=== PATIENT | male | born 1950 | race Caucasian/White ===

== ENCOUNTER → 2018-06-26 | Outpatient (CLI) | payer BC, OTHER ==
[~2018-06-26] MED LIST: ASPIRIN81 MG PO; COUMADIN 5 MG TA5 M1 PO; CRESTOR; ENALAPRIL MALEA10 M1 PO; NEXIUM; NORVASC 5 MG TAB5 MG PO
== END ==
LOC: RAD 08:46
DX: R05 Cough (principal); I11.9 Hypertensive heart disease without heart failure

== ENCOUNTER → 2019-05-08 | Outpatient (CLI) | payer OTHER | LOC: SJCVCIMAG 13:55 | DX: Z51.81 Encounter for therapeutic drug level monitoring (principal); I44.7 Left bundle-branch block, unspecified; I48.21 Permanent atrial fibrillation; R94.31 Abnormal electrocardiogram [ECG] [EKG]; I65.23 Occlusion and stenosis of bilateral carotid arteries; I25.10 Atherosclerotic heart disease of native coronary artery without angina pectoris; I71.4 Abdominal aortic aneurysm, without rupture; I10 Essential (primary) hypertension; E78.00 Pure hypercholesterolemia, unspecified; I77.4 Celiac artery compression syndrome; I73.9 Peripheral vascular disease, unspecified; R09.89 Other specified symptoms and signs involving the circulatory and respiratory systems; R06.02 Shortness of breath; Z95.2 Presence of prosthetic heart valve; Z79.01 Long term (current) use of anticoagulants ==

== ENCOUNTER → 2019-05-16 | Outpatient (CLI) | payer OTHER | LOC: SJCVCIMAG 08:08 | PROVIDERS: ATTEND Internal Medicine Cardiovascular Disease | DX: I71.4 Abdominal aortic aneurysm, without rupture (principal); I77.4 Celiac artery compression syndrome ==

== ENCOUNTER → 2020-01-11 | Outpatient (CLI) | payer OTHER | LOC: SJCVCIMAG 09:58 | PROVIDERS: ATTEND Internal Medicine Cardiovascular Disease | DX: I08.8 Other rheumatic multiple valve diseases (principal); R94.31 Abnormal electrocardiogram [ECG] [EKG]; I11.9 Hypertensive heart disease without heart failure; I49.3 Ventricular premature depolarization; I48.21 Permanent atrial fibrillation; E78.00 Pure hypercholesterolemia, unspecified; I73.9 Peripheral vascular disease, unspecified; I77.4 Celiac artery compression syndrome; I42.8 Other cardiomyopathies; Z95.2 Presence of prosthetic heart valve; Z79.01 Long term (current) use of anticoagulants; Z79.899 Other long term (current) drug therapy; Z86.73 Personal history of transient ischemic attack (TIA), and cerebral infarction without residual deficits ==

== ENCOUNTER 2020-08-04 13:37 | Inpatient (IN) | payer OTHER ==
[~2020-08-04] VITALS: Ht 190.5 cm; Wt 91.2 kg
[2020-08-04 13:40] VITALS: BP 150/87
[2020-08-04 15:13] LABS: ABSOLUTE NEUTROPHILS 8.1 thou/uL (1.4-8.2); BASOPHILS 0.3 % (0.0-2.0); EOSINOPHILS 0.2 % (0.0-3.0); HEMATOCRIT 43.1 % (42.0-52.0); HEMOGLOBIN 14.6 gm/dL (14.0-18.0); LYMPHOCYTES 12.1 % (24.0-44.0); MCH 31.3 pg (26.0-34.0); MCHC 33.9 g/dL (28.0-37.0); MCV 92.3 fL (80.0-100.0); MONOCYTES 4.6 % (1.0-8.0); PLATELET COUNT 224 thou/uL (150-400); POLYS 82.8 % (36.0-66.0); RBC 4.67 mil/uL (4.50-6.00); RDW 15.7 % (10.5-14.5); WBC 9.7 thou/uL (4.0-11.0)
[2020-08-04 15:22] LABS: CALCIUM 8.8 mg/dL (8.5-10.1); POTASSIUM 4.1 mmol/L (3.5-5.1)
[2020-08-04 15:28] LABS: ALBUMIN 3.7 g/dL (3.4-5.0); TOTAL BILIRUBIN 0.7 mg/dL (0.2-1.0); TOTAL PROTEIN 7.1 g/dL (6.4-8.2)
[2020-08-04] MEDS ORDERED: NEXIUM 40 MG CA40 M1 PO (17:07)
[2020-08-04] MEDS ORDERED: ROSUVASTATIN CA10 MG PO (17:07)
[2020-08-04] MEDS ORDERED: SERTRALINE HCL100 MG PO (17:08)
[2020-08-04] MEDS ORDERED: BYSTOLIC10 MG PO (17:08)
[2020-08-04] MEDS ORDERED: LORAZEPAM 1 MG T1 MG PO (17:08)
[2020-08-04] MEDS ORDERED: ALLOPURINOL 10100 M1 PO (17:08)
[2020-08-04] MEDS ORDERED: JANTOVEN2 MG PO (19:04)
[2020-08-04] MEDS ORDERED: METOPROLOL SUCC25 M1 PO (19:04)
[2020-08-04] MEDS ORDERED: COZAAR 25 MG TA25 M1 PO (19:04)
[2020-08-04 19:07] VITALS: BP 131/97
[2020-08-04 19:24] VITALS: BP 153/82
[2020-08-04 21:56] VITALS: BP 160/81
[2020-08-05 05:14] LABS: HEMATOCRIT 43.4 % (42.0-52.0); HEMOGLOBIN 14.4 gm/dL (14.0-18.0); MCH 31.3 pg (26.0-34.0); MCHC 33.2 g/dL (28.0-37.0); MCV 94.1 fL (80.0-100.0); RBC 4.61 mil/uL (4.50-6.00); RDW 15.4 % (10.5-14.5); WBC 11.9 thou/uL (4.0-11.0)
[2020-08-05 05:43] LABS: ALBUMIN 3.4 g/dL (3.4-5.0); CALCIUM 8.3 mg/dL (8.5-10.1); POTASSIUM 4.3 mmol/L (3.5-5.1); TOTAL BILIRUBIN 0.9 mg/dL (0.2-1.0); TOTAL PROTEIN 6.7 g/dL (6.4-8.2)
[2020-08-05 07:20] VITALS: BP 126/78
[2020-08-05 08:48] LABS: INR 2.76; PROTIME 28.7 Seconds (10.5-12.1)
--- NOTE | 2020-08-05 10:43 | 2DMMODE ---
[facility] [place] [address] 2 D/M-MODE ECHOCARDIOGRAM Name: CRYSTAL JOE Room #: 438-P ADM IN M.R.#: [id number] Admission: 08/04/20 Attend Phys: Curt Conway MD Discharge: Date of : 50 Report #: [id number] THIS REPORT FOR: cc: Curt Conway MD, Neal A. MD Lammoglia, Francisco J. MD ~ APPROVED REPORT Study performed: 08/05/2020 09:40:13 EXAM: Comprehensive 2D, Doppler, and color-flow Echocardiogram Patient Location: Bedside Room #: 438 Status: routine BSA: 2.33 HR: 85 bpm BP: 126/78 mmHg Rhythm: Atrial Fibrillation/PVCs Indications Aortic valve replacement. Hx: Afib, PVD, TIA. 2D Dimensions IVSd: 16.78 (7-11mm) LVDd: 56.74 mm PWd: 9.29 (7-11mm) Ascending Ao: 34.09 (22-36mm) LVDs: 48.54 (25-40mm) Left Atrium: 51.35 (27-40mm) Aortic Root: 34.97 mm Volumes Left Atrial Volume (Systole) Single Plane 4CH: 144.76 mL Single Plane 2CH: 114.75 mL LA ESV Index: 61.00 mL/m2 Aortic Valve AoV Peak Alex.: 1.99 m/s AO Peak Gr.: 16.10 mmHg LVOT Max P.78 mmHg AO Mean Gr.: 8.79 mmHg AO V2 Mean: 1.38 m/s LVOT Max V: 0.66 m/s AO V2 VTI: 30.31 cm Mitral Valve [facility] [address] [place] [address] 2 D/M-MODE ECHOCARDIOGRAM Name: CRYSTAL JOE Room #: 438-P [facility].#: [id number] Admission: 08/04/20 Attend Phys: Curt Conway, Discharge: Date of : 50 Report #: [id number] MV Decel. Time: 154.45 ms MV E Max Alex.: 1.35 m/s Pulmonary Valve PV Peak Alex.: 1.03 m/s PV Peak Gr.: 4.27 mmHg Tricuspid Valve TR Peak Alex.: 2.82 m/s TR Peak Gr.: 32.17 mmHg Left Ventricle The left ventricle is normal size. Moderate basal septal hypertrophy is present. Left ventricular systolic function is normal. LVEF is 50-55%. This study is not technically sufficient to allow evaluation of the LV diastolic function due to atrial fibrillation. Right Ventricle The right ventricle is normal size. The right ventricular systolic function is normal. Atria Severe biatrial enlargement. Aortic Valve A 23mm Mechanical aortic valve is present. (Peak gradient through the valve is 16mmHg with a mean of 9mmHg). No aortic regurgitation is present. Mitral Valve The mitral valve is normal in structure. Trace mitral regurgitation. Tricuspid Valve The tricuspid valve is normal in structure. Moderate tricuspid regurgitation. Estimated PAP is 32mmHg plus the right atrial pressure. Pulmonic Valve The pulmonary valve is normal in structure. Trace pulmonic regurgitation. Great Vessels The aortic root is normal in size. The ascending aorta is normal in size. IVC is not well visualized. Pericardium [facility] [address] [place] [address] 2 D/M-MODE ECHOCARDIOGRAM Name: LUCHOALYSSACRYSTAL Room #: 438-P ADM IN M.R.#: [id number] Admission: 08/04/20 Attend Phys: Curt Conway, Discharge: Date of : 50 Report #: [id number] There is no pericardial effusion. <Conclusion> The left ventricle is normal size. Moderate basal septal hypertrophy is present. LVEF is 50-55%. The right ventricle is normal size. Severe biatrial enlargement. A 23mm Mechanical aortic valve is present. (Peak gradient through the valve is 16mmHg with a mean of 9mmHg). No aortic regurgitation is present. The mitral valve is normal in structure. Trace mitral regurgitation. The tricuspid valve is normal in structure. Moderate tricuspid regurgitation. Estimated PAP is 32mmHg plus the right atrial pressure. The pulmonary valve is normal in structure. Trace pulmonic regurgitation. The aortic root is normal in size. There is no pericardial effusion. <ELECTRONICALLY SIGNED> By: Cruz Suresh MD 08/05/20 [id number] Cruz Suresh MD /INF
--- OUTSIDE RECORDS SUMMARY | 2020-08-05 15:05 | XMS REPORT | Summary of Care ---
Demographics + + + | Address | [address] [place] [address] [address] | | | [place] [address] | + + + | Home Phone | | + + + | Preferred Language | Unknown | + + + | Marital Status | Unknown | + + + | Confucianist Affiliation | Unknown | + + + | Race | White | + + + | Ethnic Group | Not or | + + + Author + + + | Author | [facility] | + + + | Organization | [facility] | + + + | Address | Unknown | + + + | Phone | Unavailable | + + + Support + + + + + | Name | Relationship | Address | Phone | + + + + + | Massiel | ECON | [id number] | | | [address] | | [place] | | | | | [facility], | | | | | [place] [address] | | + + + + + Care Team Providers + +------+ + | Care Gold Prospector Name | Role | Phone | + +------+ + | Curt Conway MD | PCP | | + +------+ + Encounter Details +------+---------+ + + + | Date | Type | Department | Care Team | Description | +------+---------+ + + + | 05/2 | Letter | [place] | Man, | | | 07/31 | (Out) | Family Medical | MD [address] | | [address] | [address] | [address], | | | | | [address] | [address] [place] | | | | | [address] | [place] [address] | | | | | [place] [address] | | | | | | | [phone] | | | | | | (Fax) | | +------+---------+ + + + Allergies + + +---------+--------+ + | Active Allergy | Reactions | Severit | Noted | Comments | | | | y | Date | | + + +---------+--------+ + | Amoxicillin-Pot | Diarrhea | Low | 02/05/ | | | Clavulanate | | | 2014 | | + + +---------+--------+ + documented as of this encounter (statuses as of 08/05/2020) Medications + + +---------+--------+-----+-----+------+ | Medication | Sig | Dispens | Refill | Sta | End | Stat | | | | ed | s | rt | | us | | | | | | Juan | Juan | | | | | | | e | e | | + + +---------+--------+-----+-----+------+ | warfarin | Take 1 tablet (2 | 90 | 2 | 10/ | 10/ | Acti | | (Coumadin) 2 MG | mg total) by | tablet | | 12/ | 12/ | ve | | tablet | mouth daily | | | 202 | 202 | | | | | | | 0 | 1 | | + + +---------+--------+-----+-----+------+ | losartan | Take 1 tablet | 90 | 3 | 10/ | 10/ | Acti | | (Cozaar) 25 MG | (25 mg total) by | tablet | | 30/ | 30/ | ve | | tablet | mouth daily | | | 202 | 202 | | | | | | | 0 | 1 | | + + +---------+--------+-----+-----+------+ | warfarin | Take 1 tablet (5 | 90 | 2 | 01/ | | Acti | | (COUMADIN) 5 MG | mg total) by | tablet | | 19/ | | ve | | tablet | mouth daily- | | | 202 | | | | | coumadin- 1700 | | | 1 | | | + + +---------+--------+-----+-----+------+ | LORazepam | TAKE 1 TABLET | 90 | 0 | 03/ | | Acti | | (ATIVAN) 1 MG | NIGHTLY | tablet | | 01/ | | ve | | tablet | NEEDED FOR | | | 202 | | | | | ANXIETY OR SLEEP | | | 1 | | | + + +---------+--------+-----+-----+------+ | allopurinol | TAKE 1 TABLET | 90 | 3 | 03/ | | Acti | | (ZYLOPRIM) 300 | DAILY | tablet | | 01/ | | ve | | MG tablet | | | | 202 | | | | | | | | 1 | | | + + +---------+--------+-----+-----+------+ | sertraline | TAKE 1 TABLET | 90 | 0 | 03/ | | Acti | | (ZOLOFT) 50 MG | DAILY | tablet | | 16/ | | ve | | tablet | | | | 202 | | | | | | | | 1 | | | + + +---------+--------+-----+-----+------+ | atorvastatin | TAKE 1 TABLET | 90 | 1 | 03/ | | Acti | | (LIPITOR) 20 MG | DAILY (THIS IS | tablet | | 16/ | | ve | | tablet | TO REPLACE THE | | | 202 | | | | | | | | 1 | | | | | NOT-COVERED | | | | | | | | ROSUVASTATIN | | | | | | | | PRESCRIPTION | | | | | | | | PLEASE) | | | | | | + + +---------+--------+-----+-----+------+ | pantoprazole | TAKE 1 TABLET | 90 | 3 | 03/ | | Acti | | (PROTONIX) 40 MG | DAILY | tablet | | 16/ | | ve | | tablet | | | | 202 | | | | | | | | 1 | | | + + +---------+--------+-----+-----+------+ | metoprolol | TAKE 1 TABLET | 90 | 1 | 03/ | | Acti | | succinate ER | DAILY | tablet | | 29/ | | ve | | (TOPROL-XL) 25 | | | | 202 | | | | MG 24 hr tablet | | | | 1 | | | + + +---------+--------+-----+-----+------+ documented as of this encounter (statuses as of 08/05/2020) Active Problems + + + | Problem | Noted Date | + + + | BMI 31.0-31.9,adult | 04/21/2018 | + + + | Abdominal pain | 03/02/2018 | + + + | Celiac artery stenosis | 07/15/2017 | + + + | AAA (abdominal aortic aneurysm) without rupture | 12/10/2016 | + + + | PAD (peripheral artery disease) | 12/10/2016 | + + + | Presence of prosthetic heart valve | 07/27/2016 | + + + | History of CVA (cerebrovascular accident) | 07/27/2016 | + + + | Pure hypercholesterolemia | 07/27/2016 | + + + | Essential (primary) hypertension | 07/27/2016 | + + + | senior living current use of anticoagulant | 07/27/2016 | + + + | Rheumatic mitral valve disease | 07/27/2016 | + + + | Syncope and collapse | 07/27/2016 | + + + | Atrial fibrillation [I48.91] | 07/21/2016 | + + + | History of prosthetic aortic valve replacement | 07/21/2016 | + + + | Tremor | 02/05/2015 | + + + + + | Overview: Overview: Symptoms began in 2014, | | initial symptoms was right hand tremor. Diagnosed | | with Parkinson's disease in 2014. Atypical PD | | Features: suble parkinsonian features 11/01/14 | | Datscan: Mild decrease activity in left caudate | | compared to right. Decreased activity in right | | caudate compared to right putamen Findings consistent | | with possible parkinsonismNo benefit with low doses | | of Sinemet (carbidopa/levodopa) 25/100 02/07/2015 | | Total Mentation Score: 1 Total Activities of Daily | | Living Score: 4 Total Motor Exam: 12 Total UPDRS | | Score: 17 PDQ Total Percent: 3.85 % 10/03/2017 | | Mobility Gait Evaluation: TUG was increased. Hand | | Medical Review Coordinator Strength: RIGHT: 36.6 KG LEFT: 18 KG Last | | Assessment & Plan: His symptoms are stable. No | | medication changes were recommended during the | | current visit. | + + documented as of this encounter (statuses as of 08/05/2020) Resolved Problems + +--------+---------+ | Problem | Noted | Resolve | | | Date | d Date | + +--------+---------+ | Hypercholesterolemia | 07/27/ | | | | 2016 | 017 | + +--------+---------+ | Hypertension | 07/27/ | | | | 2016 | 017 | + +--------+---------+ documented as of this encounter (statuses as of 08/05/2020) Immunizations + + + + | Name | Administration Dates | Next Due | + + + + | Influenza, | 12/14/2019 | | | Quadrivalent | | | + + + + documented as of this encounter Social History + +-------+---------+--------+------+ | Tobacco Use | Types | Packs/D | Years | Date | | | | ay | Used | | + +-------+---------+--------+------+ | Never Smoker | | | | | + +-------+---------+--------+------+ + +---+---+---+ | Smokeless | | | | | Tobacco: Never | | | | | Used | | | | + +---+---+---+ + + +---------+ + | Alcohol Use | Drinks/Week | oz/Week | Comments | + + +---------+ + | Yes | | | beer weekly | + + +---------+ + + + + | Sex Assigned at | Date Recorded | | | | + + + | Not on file | | + + + documented as of this encounter Last Filed Vital Signs Not on filedocumented in this encounter Plan of Treatment +------+---------+ + + + | Date | Type | Specialty | Care Team | Description | +------+---------+ + + + | 08/13 | Office | Cardiology | Kevin, | | | [birth year] | Visit | | MD [address] | | [address] | | | | | | [address] | | | | | | [place], [place] | | | | | | [address] | | | | | | [phone] | | | | | | [phone] | | | | | | (Fax) | | +------+---------+ + + + + +---------+--------+ + | Health | Due | Last | Comments | | Maintenance | Date | Done | | + +---------+--------+ + | COLONOSCOPY | | | | | | 951 | | | + +---------+--------+ + | COVID-19 VACCINE | | | | | | 969 | | | + +---------+--------+ + | (Pneumovax) | | | | | Pneumococcal | 016 | | | | Polysaccharide | | | | | Vaccine Age 65 | | | | | and Over | | | | + +---------+--------+ + | (Prevnar) | | | | | Pneumococcal | 016 | | | | Conjugate | | | | | Vaccine Age 65 | | | | | and over | | | | + +---------+--------+ + | INFLUENZA | | 12/13/ | | | VACCINE | 021 | 2020 | | + +---------+--------+ + documented as of this encounter Results Not on filedocumented in this encounter Insurance + +------+ +------+-------+---------+------+ | Payer | Bene | Subscrib | Effe | Phone | Address | Type | | | fit | er ID | ctiv | | | | | | Plan | | e | | | | | | / | | Date | | | | | | Grou | | s | | | | | | p | | | | | | + +------+ +------+-------+---------+------+ | MEDICARE | MEDI | [id number] | 10/12/ | | [place] | | | | CARE | [id number] | 2016 | | | | | | | | -Pre | | | | | | PART | | sent | | | | | | A | | | | | | | | AND | | | | | | | | B | | | | | | + +------+ +------+-------+---------+------+ | [employer] | MUTU | [id number] | 12/12 | | | | | | [place] | | /201 | | | | | | OF | | 9-Pr | | | | | | OMAH | | esen | | | | | | A | | t | | | | + +------+ +------+-------+---------+------+ documented as of this encounter"
[2020-08-05 15:51] VITALS: BP 134/72
[2020-08-05 19:09] VITALS: BP 134/80
[2020-08-06 04:04] VITALS: BP 135/66
[2020-08-06 06:03] LABS: HEMATOCRIT 40.8 % (42.0-52.0); HEMOGLOBIN 13.5 gm/dL (14.0-18.0); MCH 31.1 pg (26.0-34.0); MCHC 33.1 g/dL (28.0-37.0); MCV 94.1 fL (80.0-100.0); RBC 4.34 mil/uL (4.50-6.00); RDW 15.7 % (10.5-14.5); WBC 14.3 thou/uL (4.0-11.0)
[2020-08-06 06:13] LABS: INR 3.4; PROTIME 34.4 Seconds (9.3-11.4)
[2020-08-06 06:37] LABS: CALCIUM 7.9 mg/dL (8.5-10.1); CREATININE 0.9 mg/dL (0.7-1.3); POTASSIUM 3.9 mmol/L (3.5-5.1); TOTAL BILIRUBIN 1.5 mg/dL (0.2-1.0); TOTAL PROTEIN 6.4 g/dL (6.4-8.2)
[2020-08-06 08:16] LABS: URINE BILIRUBIN NEGATIVE (Negative); URINE BLOOD NEGATIVE (Negative); URINE CLARITY CLEAR; URINE COLOR ORANGE; URINE GLUCOSE-RANDOM* NEGATIVE (Negative); URINE KETONES TRACE (Negative); URINE LEUKOCYTES-REFLEX NEGATIVE (Negative); URINE NITRITE-REFLEX NEGATIVE (Negative); URINE PROTEIN (DIPSTICK) 1+ (Negative); URINE SPECIFIC GRAVITY >= 1.030 (1.005-1.035)
[2020-08-06 08:23] VITALS: BP 126/64
[2020-08-06 08:32] LABS: CASTS None Seen /LPF (None Seen); CRYSTALS None Seen /LPF (None Seen); MUCUS 0-3 Light strn/LPF (None Seen); SQUAMOUS 0-3 Few /LPF (0-3)
[2020-08-06 08:37] LABS: URINE WBC-REFLEX 0-5 Rare /HPF (0-5)
[2020-08-06 08:38] LABS: BACTERIA-REFLEX 1-9 Few /HPF (None Seen); URINE RBC None Seen /HPF (NONE SEEN)
[2020-08-06 16:36] VITALS: BP 149/87
[2020-08-06 19:55] VITALS: BP 127/70
[2020-08-07 05:35] LABS: HEMATOCRIT 37.1 % (42.0-52.0); HEMOGLOBIN 12.5 gm/dL (14.0-18.0); MCH 31.7 pg (26.0-34.0); MCHC 33.6 g/dL (28.0-37.0); MCV 94.2 fL (80.0-100.0); RBC 3.94 mil/uL (4.50-6.00); RDW 15.5 % (10.5-14.5); WBC 11.1 thou/uL (4.0-11.0)
[2020-08-07 05:50] LABS: INR 3.89; PROTIME 39.7 Seconds (10.5-12.1)
[2020-08-07 05:56] LABS: ALBUMIN 2.6 g/dL (3.4-5.0); CREATININE 0.9 mg/dL (0.7-1.3); POTASSIUM 3.5 mmol/L (3.5-5.1); TOTAL BILIRUBIN 1.6 mg/dL (0.2-1.0); TOTAL PROTEIN 6.1 g/dL (6.4-8.2)
[2020-08-07 07:27] VITALS: BP 137/84
[2020-08-07 08:51] VITALS: BP 137/84
== END 2020-08-07 09:59 | disposition home or self-care (01) | DRG 438 ==
LOC: ER 13:37 → 4S 19:58
PROVIDERS: Nurse Practitioner; Nurse Practitioner Family; ADMIT Family Medicine; ATTEND Family Medicine
DX: K85.90 Acute pancreatitis without necrosis or infection, unspecified (principal); E43 Unspecified severe protein-calorie malnutrition; I48.20 Chronic atrial fibrillation, unspecified; I10 Essential (primary) hypertension; K83.4 Spasm of sphincter of Oddi; E78.00 Pure hypercholesterolemia, unspecified; I35.0 Nonrheumatic aortic (valve) stenosis; I71.4 Abdominal aortic aneurysm, without rupture; E78.5 Hyperlipidemia, unspecified; E80.6 Other disorders of bilirubin metabolism; Z88.8 Allergy status to other drugs, medicaments and biological substances; Z95.2 Presence of prosthetic heart valve; Z86.73 Personal history of transient ischemic attack (TIA), and cerebral infarction without residual deficits
CPT/HCPCS: 10195

== ENCOUNTER → 2020-09-03 | Outpatient (CLI) | payer OTHER ==
[~2020-09-03] MED LIST changes: +ALLOPURINOL 10100 M1 PO; +BYSTOLIC10 MG PO; +COZAAR 25 MG TA25 M1 PO; +JANTOVEN2 MG PO; +LORAZEPAM 1 MG T1 MG PO; +METOPROLOL SUCC25 M1 PO; +NEXIUM 40 MG CA40 M1 PO; +ROSUVASTATIN CA10 MG PO; +SERTRALINE HCL100 MG PO
== END ==
LOC: SJCVC 09:46
PROVIDERS: ATTEND Internal Medicine Cardiovascular Disease
DX: R94.31 Abnormal electrocardiogram [ECG] [EKG] (principal); I48.91 Unspecified atrial fibrillation; I25.10 Atherosclerotic heart disease of native coronary artery without angina pectoris; I10 Essential (primary) hypertension; E78.00 Pure hypercholesterolemia, unspecified; I71.4 Abdominal aortic aneurysm, without rupture; I73.9 Peripheral vascular disease, unspecified; I65.23 Occlusion and stenosis of bilateral carotid arteries; K55.1 Chronic vascular disorders of intestine; M10.9 Gout, unspecified; E78.5 Hyperlipidemia, unspecified; Z95.2 Presence of prosthetic heart valve; Z88.8 Allergy status to other drugs, medicaments and biological substances; Z79.01 Long term (current) use of anticoagulants; Z79.899 Other long term (current) drug therapy; Z86.73 Personal history of transient ischemic attack (TIA), and cerebral infarction without residual deficits; Z82.49 Family history of ischemic heart disease and other diseases of the circulatory system

== ENCOUNTER → 2021-01-16 | Outpatient (CLI) | payer OTHER | LOC: SJCVCIMAG 08:22 | PROVIDERS: ATTEND Internal Medicine Cardiovascular Disease | DX: I35.0 Nonrheumatic aortic (valve) stenosis (principal); I10 Essential (primary) hypertension; K55.1 Chronic vascular disorders of intestine; I77.4 Celiac artery compression syndrome; E78.00 Pure hypercholesterolemia, unspecified; I48.0 Paroxysmal atrial fibrillation; I71.4 Abdominal aortic aneurysm, without rupture; I65.23 Occlusion and stenosis of bilateral carotid arteries; M10.9 Gout, unspecified; E78.5 Hyperlipidemia, unspecified; I48.20 Chronic atrial fibrillation, unspecified; I73.9 Peripheral vascular disease, unspecified; Z95.2 Presence of prosthetic heart valve; Z72.89 Other problems related to lifestyle; Z79.899 Other long term (current) drug therapy; Z79.01 Long term (current) use of anticoagulants; Z88.1 Allergy status to other antibiotic agents; Z95.4 Presence of other heart-valve replacement; Z82.49 Family history of ischemic heart disease and other diseases of the circulatory system; Z51.81 Encounter for therapeutic drug level monitoring ==